=== PATIENT | female | born 1990 | race Caucasian/White ===

== ENCOUNTER → 2019-10-30 | Outpatient (CLI) | payer OTHER ==
[~2019-10-30] MED LIST: PROZ20CA11 PO
--- NOTE | 2019-10-30 11:15 | REPVR ---
PROCEDURE INFORMATION: Exam: US First Trimester, Transabdominal and US , Transvaginal Exam date and time: 10/30/2019 9:56 AM Age: 28 years old Clinical indication: Screening exam; Patient had IUD removed yesterday. Office attempted an ultrasound. Unable to see anything. ; ; Additional info: [place] , [place] [id number]. Last menstrual period 09/17/2019. TECHNIQUE: Imaging protocol: Real-time transabdominal obstetrical ultrasound of the maternal pelvis and a first trimester , less than 14 weeks 0 days, with image documentation. Transvaginal imaging was used for better evaluation of the fetus and adnexa. COMPARISON: No relevant prior studies available. FINDINGS: Gestation: A gestational sac is present within the right uterine fundus. Mean gestational sac diameter = 1.04 cm. A yolk sac is present within the gestational sac. No pole is identified within the gestational sac. BIOMETRY: Gestational age (AUA): 6 weeks 0 days. MATERNAL: Uterus: The uterus measures 7.6 x 3.4 x 5.8 cm. Cervix: Unremarkable. Right adnexa: The right ovary measures 2.8 x 1.5 x 2.1 cm. The right ovary demonstrates color Doppler blood flow. The right ovary demonstrates spectral Doppler blood flow with low resistance arterial waveform and venous waveform. Left adnexa: The left ovary measures 3.4 x 3 x 1.5 cm. The left ovary contains an ovoid 1.5 x 1.8 x 1.9 cm mildly heterogeneous structure with peripheral color Doppler flow consistent with a corpus luteum. The left ovary demonstrates color Doppler blood flow. The left ovary demonstrates spectral Doppler blood flow with low resistance arterial waveform and venous waveform. Intraperitoneal space: Minimal anechoic simple-appearing free intraperitoneal pelvic fluid. IMPRESSION: Intrauterine of uncertain viability. An intrauterine gestational sac is present. Estimated gestational age is 6 weeks 0 days. Short-term follow-up ultrasound is recommended to reassess viability. Electronically signed by: Isaiah Mccullough On 10/30/2019 10:44:37 AM
== END ==
LOC: M RAD 09:24
PROVIDERS: ATTEND Obstetrics & Gynecology
DX: O36.80X0 Pregnancy with inconclusive fetal viability, not applicable or unspecified (principal); Z3A.01 Less than 8 weeks gestation of pregnancy

== ENCOUNTER 2019-11-26 07:52 | Day surgery (SDC) | payer OTHER ==
[~2019-11-26] VITALS: Ht 162.6 cm; Wt 59.3 kg
[~2019-11-26 07:52] MED LIST changes: +ACETAMINOPHEN *IV* 1,000 MG in IV 1 EA IV ONE; +BUPIVACAINE HCL 0.25% 30ML VIAL As Ordered ONE; +LIDOCAINE 2% 100MG/5ML SDV (FOR ANES.) As Ordered ONE; +LR 1,000 ML IV ONE; +MIDAZOLAM INJ 2MG/2ML VIAL (J2250 PER 1MG) As Ordered ONE; +ONDANSETRON 4MG/2ML VIAL As Ordered ONE; +ROCURONIUM BROMIDE 50 MG/5 ML VIAL As Ordered ONE; +SCOPOLAMINE 1MG TRANSDERMAL PATCH TOP ONE; +dexameTHASONE 4 MG/ML 1ML VIAL (J1100 PER 1MG) As Ordered ONE; +fentaNYL 100 MCG/2 ML INJECTION (J3010) As Ordered ONE; +propofoL 200 MG/20 ML VIAL As Ordered ONE
[2019-11-26 08:25] LABS: HEMOGLOBIN 12.1 g/dl (12.0-15.5); MEAN CORPUSCULAR HEMOGLOBIN 33.4 pg (27.0-33.0); MEAN CORPUSCULAR HGB CONC 34.6 g/dl (32.0-36.5); MEAN CORPUSCULAR VOLUME 96.7 fl (80.0-96.0); PLATELET COUNT, AUTOMATED 267 10^3/uL (150-450); RED BLOOD COUNT 3.62 10^6/uL (4.00-5.40); WHITE BLOOD COUNT 4.8 10^3/uL (4.0-10.0)
[2019-11-26] MEDS ORDERED: ACETAMINOPHEN 1000MG 100ML IV BTL (OFIRMEV) (J0131 PER 10MG) As Ordered ONE (10:16)
[2019-11-26] MEDS ORDERED: SUGAMMADEX SODIUM 500 MG/5 ML VIAL (BRIDION) As Ordered ONE (10:28)
[2019-11-26] MEDS ORDERED: KETOROLAC 60MG 2ML VIAL As Ordered ONE (10:29)
[2019-11-26] MEDS ORDERED: fentaNYL 100 MCG/2 ML INJECTION (J3010) As Ordered ONE (10:36)
[2019-11-26] MEDS ORDERED: GLYCOPYRROLATE INJ 0.2 MG/ML 2 ML VIAL As Ordered ONE (11:00)
[2019-11-26] MEDS ORDERED: HYDROMORPHONE HCL 0.5 MG/ 0.5 ML SYRINGE (J1170 PER 1) IV PRN (12:00)
[2019-11-26] MEDS ORDERED: oxyCODONE 5MG TAB PO PRN ×2 (12:00→13:00)
[2019-11-26] MEDS ORDERED: fentaNYL 100 MCG/2 ML INJECTION (J3010) IV PRN (12:00)
[2019-11-26] MEDS ORDERED: ONDANSETRON 4MG/2ML VIAL IV PRN (12:00)
[2019-11-26] MEDS ORDERED: LR 1,000 ML IV SCH (12:00)
[2019-11-26] MEDS ORDERED: MEPERIDINE INJ 25 MG/ML VIAL (J2175) IV PRN (12:00)
--- NOTE | 2019-11-26 12:48 | ROOPDOC ---
[facility] Report Of Operation Report of Operation DATE OF PROCEDURE: 11/26/19 PREPROCEDURE DIAGNOSES: satisfied parity POSTPROCEDURE DIAGNOSES: satisfied parity PROCEDURE: laparoscopic bilateral salpingectomy, pap smear under anesthesia SURGEON: Jem Shields DO MACHINE OPERATOR HOP WORKER: Lemuel Muniz MD ANESTHESIA: general ESTIMATED BLOOD LOSS: Approximately 5 mL. COMPLICATIONS: none REMARKS: none PROCEDURE NOTE: The risks, benefits, and alternatives of the procedure were discussed and written consent was obtained. The patient was taken to the OR where she was placed under general anesthesia and positioned in low lithotomy in the yellow fins with her arms tucked. A pap smear was performed. The vagina, abdomen, and perineum were prepped and draped in a sterile fashion. A final time out was performed. A moistened sponge stick was placed in the vagina and a stewart in the bladder. The infraumbilical area was injected with approx 5cc of 0.5% marcaine and a 5mm incision was made. A 5mm trochar was then placed using the direct technique. The opening pressure was 5mmHg and there was no trauma below the site of entry. The area 2cm superior and medial to the bilateral ASISs were transilluminated and 0.5% marcaine injected. 5mm incisions were made and 5mm trocars were placed under direct visualization. An anatomy survey was performed; normal uterus, ovaries, fallopian tubes, liver edge, gallbladder edge, stomach edge. Appendix not visualized. The right fallopian tube was grasped at the fimbriated end and the mesosalpinx transsected with the ligasure to the level of the cornua. It was then truncated and removed via the 5mm port. The same procedure was repeated on the left side. Pneumoperitoneum was lessened and the surgical sites remained hemostatic. The lower ports were removed and the ports sites remained hemostatic. The pneumoperitoneum was released and 2 manual breaths were given by anesthesia. The umbilical port was removed. The ports were reapproximated with 3-0 monocryl and secured with dermabond. The sponge stick and stewart were removed. The sponge, lap, and needle counts were correct x2. There were no complications. The patient was transferred to the PACU in stable condition. JEM SHIELDS DO Nov 26, 2019 12:48
[2019-11-26] MEDS ORDERED: IBUPROFEN 800 MG TAB PO PRN (13:00)
[2019-11-26 13:30] VITALS: BP 107/55
== END 2019-11-26 13:30 | disposition home or self-care (01) ==
LOC: M SDC 07:52
PROVIDERS: ATTEND Obstetrics & Gynecology
DX: Z30.2 Encounter for sterilization (principal); Z12.4 Encounter for screening for malignant neoplasm of cervix; K21.9 Gastro-esophageal reflux disease without esophagitis; F32.9 Major depressive disorder, single episode, unspecified; Z79.899 Other long term (current) drug therapy
CPT/HCPCS: 36415; 57410; 58661; 84702; 85027; 87624; 88302; G0123; J0131; J1100; J1885; J2250; J2405; J3010

== ENCOUNTER → 2021-09-16 | Outpatient (CLI) | payer OTHER ==
[~2021-09-16] MED LIST changes: -ACETAMINOPHEN *IV* 1,000 MG in IV 1 EA IV ONE; -BUPIVACAINE HCL 0.25% 30ML VIAL As Ordered ONE; -LIDOCAINE 2% 100MG/5ML SDV (FOR ANES.) As Ordered ONE; -LR 1,000 ML IV ONE; +METHACHOLINE KIT (J7674) INH ONE; -MIDAZOLAM INJ 2MG/2ML VIAL (J2250 PER 1MG) As Ordered ONE; -ONDANSETRON 4MG/2ML VIAL As Ordered ONE; -ROCURONIUM BROMIDE 50 MG/5 ML VIAL As Ordered ONE; -SCOPOLAMINE 1MG TRANSDERMAL PATCH TOP ONE; -dexameTHASONE 4 MG/ML 1ML VIAL (J1100 PER 1MG) As Ordered ONE; -fentaNYL 100 MCG/2 ML INJECTION (J3010) As Ordered ONE; -propofoL 200 MG/20 ML VIAL As Ordered ONE
== END ==
LOC: M CARPUL 10:43
PROVIDERS: ATTEND Nurse Practitioner Family
DX: R06.00 Dyspnea, unspecified (principal)
CPT/HCPCS: 94070; J7674

== ENCOUNTER → 2022-03-03 | Outpatient (CLI) | payer OTHER ==
[~2022-03-03] MED LIST changes: -METHACHOLINE KIT (J7674) INH ONE
== END ==
LOC: M SLEEP 20:00
PROVIDERS: ATTEND Nurse Practitioner Family
DX: R40.0 Somnolence (principal)

== ENCOUNTER → 2022-03-21 | Outpatient (REF) | payer OTHER ==
[2022-03-21 17:48] LABS: HEPATITIS B SURFACE ANTIBODY POSITIVE (POSITIVE)
[2022-03-21 17:49] LABS: THYROID STIMULATING HORMONE 1.259 uIU/ML (0.55-4.78)
[2022-03-21 17:51] LABS: TOTAL 25(OH) VITAMIN D 59.7 NG/ML (20.0-100.0)
[2022-03-21 17:52] LABS: MAGNESIUM LEVEL 1.9 MG/DL (1.8-2.4)
[2022-03-21 17:53] LABS: CPK CREATINE PHOSPHOKINASE 159 U/L (34-145)
[2022-03-21 17:56] LABS: VITAMIN B12 LEVEL 835 PG/ML (211-911)
[2022-03-21 17:59] LABS: C REACTIVE PROTEIN QUANTITATIV < 0.40 MG/DL (<1.0)
[2022-03-21 18:01] LABS: HEPATITIS B SURFACE ANTIGEN NEGATIVE (NEGATIVE)
== END ==
LOC: M SFHCRHEU 14:52
PROVIDERS: ATTEND Internal Medicine
DX: M25.50 Pain in unspecified joint (principal); R76.8 Other specified abnormal immunological findings in serum; M79.10 Myalgia, unspecified site